=== PATIENT | female | born 1950 | race Asian ===

== ENCOUNTER → 2020-02-19 | Outpatient (CLI) | payer MEDICARE ==
[2020-02-19 10:28] LABS: THYROID STIMULATING HORMONE 18.77 uIU/mL (0.36-3.74)
== END | disposition home or self-care (01) ==
LOC: LABPV 08:25
PROVIDERS: ATTEND Internal Medicine Interventional Cardiology
DX: I50.9 Heart failure, unspecified (principal)
CPT/HCPCS: 84436; 84443